=== PATIENT | male | born 1975 | race Caucasian/White ===

== ENCOUNTER 2019-10-09 17:31 | Emergency (ER) | payer MEDICAID ==
[~2019-10-09] VITALS: Ht 170.2 cm; Wt 70.3 kg
[2019-10-09 17:45] VITALS: BP 127/76
--- NOTE | 2019-10-09 20:02 | NUR ---
AMBULATES TO BED 12 WITH UPRIGHT, STEADY GAIT. FAMILY ACCOMPANYING.
--- NOTE | 2019-10-09 20:32 | NUR ---
DR. VAMSHI ROBB AT BEDSIDE.
[2019-10-09 21:06] VITALS: BP 125/79
--- NOTE | 2019-10-09 21:06 | NUR ---
Patient discharged with v/s stable. Written and verbal after care instructions given and explained. Patient verbalized understanding. Ambulatory with steady gait. All questions addressed prior to discharge. Advised to follow up with PMD.
== END 2019-10-09 21:06 | disposition home or self-care (01) ==
LOC: MED 17:31
DX: Z76.0 Encounter for issue of repeat prescription (principal); Z51.81 Encounter for therapeutic drug level monitoring
CPT/HCPCS: 99283